=== PATIENT | male | born 1975 | race African-American/Black ===

== ENCOUNTER 2021-05-01 03:06 | Emergency (ER) | payer SELFPAY ==
[~2021-05-01] VITALS: Ht 185.4 cm; Wt 82.0 kg
[2021-05-01] MEDS ORDERED: ONDANSETRON HCL 4MG/2ML INJ IM STA (03:57)
[2021-05-01] MEDS ORDERED: IBUPROFEN 600MG TABLET PO STA (03:57)
[2021-05-01] MEDS ORDERED: ONDA4TAB5 PO (04:43)
[2021-05-01] MEDS ORDERED: ALBU18HF2 IH (04:43)
[2021-05-01] MEDS ORDERED: IBUP-2029 PO (04:43)
[2021-05-01 05:05] VITALS: BP 138/87
== END 2021-05-01 05:31 | disposition home or self-care (01) ==
LOC: ER 03:06
DX: J20.9 Acute bronchitis, unspecified (principal); Z20.822 Contact with and (suspected) exposure to COVID-19
CPT/HCPCS: 87804; 96372; 99283; C9803; J2405; U0003; U0005

== ENCOUNTER 2021-05-03 10:56 | Emergency (ER) | payer SELFPAY ==
[~2021-05-03] VITALS: Ht 185.4 cm; Wt 78.0 kg
[~2021-05-03 10:56] MED LIST: ALBU18HF2 IH; IBUP-2029 PO; ONDA4TAB5 PO
[2021-05-03 11:04] VITALS: BP 139/95
[2021-05-03] MEDS ORDERED: GUAI-740 MT (11:57)
== END 2021-05-03 12:09 | disposition home or self-care (01) ==
LOC: ER 10:56
DX: J06.9 Acute upper respiratory infection, unspecified (principal); U07.1 COVID-19; Z79.899 Other long term (current) drug therapy
CPT/HCPCS: 71045; 99284; C9803; U0003; U0005